=== PATIENT | male | born 1990 | race Caucasian/White ===

== ENCOUNTER 2018-03-24 03:02 | Emergency (ER) | payer SELFPAY ==
[2018-03-24] MEDS ORDERED: PREDNISONE 20 MG TABLET PO ONE (03:19)
[2018-03-24] MEDS ORDERED: IPRATROPIUM/ALBUTEROL 0.5-2.5 MG/3 ML AMPUL NEB ONE ×3 (03:19)
--- NOTE | 2018-03-24 03:22 | ER Document Report ---
ED Respiratory Problem - General Chief Complaint: Breathing Difficulty Stated Complaint: TROUBLE BREATHING Time Seen by Provider: 03/24/18 03:15 Notes: Patient is a 27-year-old male with a history of asthma comes emergency department for chief complaint of several days of worsening wheezing and cough. He has mostly clear productive sputum, denies fevers, he has been using an albuterol nebulizer at home, he states he used to struggle with asthma a lot but has not had it in a long time. He denies smoking, he denies any other medical history or complaints. TRAVEL OUTSIDE OF THE [place] IN LAST 30 DAYS: No - Related Data Allergies/Adverse Reactions: No Known Allergies Allergy (Verified 09/30/17 11:52) Past Medical History - General Information source: Patient - Social History Smoking Status: Never Smoker Frequency of alcohol use: None Drug Abuse: None Lives with: Spouse/Significant other Family History: None Pulmonary Medical History: Reports: Hx Asthma Renal/ Medical History: Denies: Hx Peritoneal Dialysis Psychiatric Medical History: Reports: Hx Bipolar Disorder, Hx Schizophrenia Past Surgical History: Reports: Hx Abdominal Surgery - hernia, Hx Herniorrhaphy - as an , Hx Orthopedic Surgery - pectus excavatum surgery - Immunizations Hx Diphtheria, Pertussis, Tetanus Vaccination: Yes Review of Systems - Review of Systems Constitutional: No symptoms reported EENT: No symptoms reported Cardiovascular: No symptoms reported Respiratory: See HPI Gastrointestinal: No symptoms reported Genitourinary: No symptoms reported Male Genitourinary: No symptoms reported Musculoskeletal: No symptoms reported Skin: No symptoms reported Hematologic/Lymphatic: No symptoms reported Neurological/Psychological: No symptoms reported Physical Exam - Vital signs Vitals: Temp Pulse Resp BP Pulse Ox 97.6 F 79 22 H 135/92 H 96 03/24/18 03:09 03/24/18 03:09 03/24/18 03:09 03/24/18 03:09 03/24/18 03:09 Interpretation: Normal - General General appearance: Appears well, Alert - HEENT Head: Normocephalic, Atraumatic Eyes: Normal Pupils: PERRL Nasal: Normal Mouth/Lips: Normal Mucous membranes: Normal Pharynx: Normal Neck: Normal - Respiratory Respiratory status: No respiratory distress. No: Respiratory distress, Labored Chest status: Nontender Breath sounds: Nonproductive cough, Wheezing Chest palpation: Normal - Cardiovascular Rhythm: Regular Heart sounds: Normal auscultation Murmur: No - Abdominal Inspection: Normal Distension: No distension Bowel sounds: Normal Tenderness: Nontender Organomegaly: No organomegaly - Back Back: Normal, Nontender - Extremities General upper extremity: Normal inspection, Nontender, Normal color, Normal ROM , Normal temperature General lower extremity: Normal inspection, Nontender, Normal color, Normal ROM , Normal temperature, Normal weight bearing. No: Liam's sign - Neurological Neuro grossly intact: Yes Cognition: Normal Orientation: AAOx4 [place] Coma Scale Eye Opening: Spontaneous [place] Coma Scale Verbal: Oriented [place] Coma Scale Motor: Obeys Commands [place] Coma Scale Total: 15 Speech: Normal Motor strength normal: LUE, RUE, LLE, RLE Sensory: Normal - Psychological Associated symptoms: Normal affect, Normal mood - Skin Skin Temperature: Warm Skin Moisture: Dry Skin Color: Normal Course - Re-evaluation Re-evalutation: Patient initially with diffuse expiratory wheezes and a few scattered coarse breath sounds. Improved with first DuoNeb. Chest x-ray unremarkable. No hypoxia. No distress. No fever. After additional treatments, prednisone, symptoms completely resolved. Patient states he feels much better, ready to go home. Provided with short-term inhaler , he states he has plenty of albuterol nebulizer, provided with prednisone discussed follow-up, discussed return precautions, patient states satisfaction and agreement. - Vital Signs Vital signs: Temp Pulse Resp BP Pulse Ox 98.2 F 90 16 116/74 97 03/24/18 05:18 03/24/18 05:18 03/24/18 05:18 03/24/18 05:18 03/24/18 05:18 Discharge - Discharge Clinical Impression: Wheezing, Cough Asthma exacerbation Qualifiers: Asthma severity: unspecified severity Asthma persistence: unspecified Qualified Code(s): J45.901 - Unspecified asthma with (acute) exacerbation Condition: Stable Disposition: HOME, SELF-CARE Additional Instructions: Your chest x-ray is normal. Your examination is consistent with asthma exacerbation and bronchitis. Take prednisone as prescribed to completion. Consider [id number] allergy medication such as Magdalena, use your nebulizer. Follow-up with primary care. Return if you worsen including difficulty breathing, fever, or any other concerning or worsening symptoms. Prescriptions: Prednisone 60 mg PO DAILY #15 tablet Forms: Return to Work
--- NOTE | 2018-03-24 04:14 | RADIOLOGY REPORT (SQ) ---
EXAM DESCRIPTION: CHEST SINGLE VIEW CLINICAL HISTORY: 27 years Male, shortness of breath COMPARISON: 11.3.17. NUMBER OF VIEWS/TECHNIQUE: 1/AP FINDINGS: Increased lung volume, clear parenchyma, normal cardiac silhouette, and intact bony thorax. IMPRESSION: No acute cardiopulmonary findings.
[2018-03-24] MEDS ORDERED: ALBUTEROL SULFATE HFA (90 MCG/PUFF) 8 GM MDI (1 MDI/ER DISP) IH ONE (05:11)
[2018-03-24 05:21] VITALS: BP 116/74
== END 2018-03-24 05:21 | disposition home or self-care (01) ==
LOC: ER 03:02
DX: J45.901 Unspecified asthma with (acute) exacerbation (principal)
CPT/HCPCS: 94640 ×2; 99284; 71045; J7512; J3490; J7620